=== PATIENT | male | born 1960 | race Hispanic/Latino ===

== ENCOUNTER 2025-03-31 10:17 | Emergency (ER) | payer OTHER ==
[~2025-03-31] VITALS: Ht 165.1 cm; Wt 7.0 kg
[2025-03-31] MEDS: BACITRACIN ZINC 0.9GM TP ONE (12:58)
[2025-03-31] MEDS: ACETAMINOPHEN 325 MG TAB PO ONE (12:58)
[2025-03-31] MEDS: DIPHTH,PERTUSS(ACELL),TET VAC 0.5 ML SYRINGE IM ONE (12:58)
[2025-03-31 13:23] VITALS: PULSE 63; RESP 16; TEMP 98.2; O2SAT 99
[2025-03-31] MEDS ORDERED: KEFLEX125 MG/5 M PO (13:23)
[2025-03-31] MEDS ORDERED: CEPHALEXIN500 MG PO (13:26)
[2025-03-31] MEDS ORDERED: CEPHALEXIN MONOHYDRATE 250 MG CAP ONE (13:27)
[2025-03-31] MEDS: CEPHALEXIN 500 MG CAP PO ONE (13:28)
== END 2025-03-31 13:32 | disposition home or self-care (01) ==
LOC: FSED 12:05
DX: S61.002A Unspecified open wound of left thumb without damage to nail, initial encounter (principal); W27.0XXA Contact with workbench tool, initial encounter; Y92.89 Other specified places as the place of occurrence of the external cause; E11.9 Type 2 diabetes mellitus without complications
CPT/HCPCS: 99284